=== PATIENT | male | born 1935 | race Caucasian/White ===

== ENCOUNTER 2017-04-04 20:59 | Emergency (ER) | payer MEDICARE, OTHER, BC ==
[2017-04-04] MEDS ORDERED: CLONIDINE HCL 0.1 MG TABLET PO ONE ×2 (21:11→23:09)
[2017-04-04 21:19] LABS: BASO % 0.5 % (0-6); EOS % 5.4 % (0-6); GRAN % 65.6 % (47-80); HEMATOCRIT 37.7 % (42.0-52.0); LYMPH % 18.7 % (16-45); MEAN CELL VOLUME 94.3 fl (81-97); MEAN CORPUSCULAR HEMOGLOBIN 32.5 pg (27-33); MEAN CORPUSCULAR HGB CONC 34.5 g/dl (32-36); MEAN PLATELET VOLUME 9.1 fl (7.4-10.4); MONO % 9.8 % (0-9); PLATELET COUNT 295 K/uL (130-400); RED CELL DISTRIBUTION WIDTH 13.5 % (11.5-14.5); WHITE BLOOD COUNT W/O DIFF 9.9 K/uL (4.2-12.2)
--- NOTE | 2017-04-04 21:22 | Emergency Department Record ---
History of Present Illness - General Chief Complaint: Dizziness Stated Complaint: DIZZINESS Source: Patient, Family - History of Present Illness Initial Comments: Patient and his report that he has been "fuzzy" in his head with dizziness all day today and less so yesterday. He has a slight headache. He denies any sensation of motion or spinning. He denies cp, ghulam, nausea, vomiting, slurred speech, unilateral weakness. He has had a history of htn, and a stroke over 10 years ago, no AK, DM, is a former smoker. MD Complaint: Dizziness - Related Data Home Medications Medication Instructions Recorded Confirmed Last Taken Aspirin [Aspir-Low] 81 mg PO DAILY 04/04/17 04/04/17 04/04/17 Calcium Carbonate [Calcium] 500 mg PO BID 04/04/17 04/04/17 04/04/17 Ezetimibe [Zetia] 10 mg PO DAILY 04/04/17 04/04/17 04/04/17 Nebivolol HCl [Bystolic] 5 mg PO DAILY 04/04/17 04/04/17 04/04/17 Omeprazole [Prilosec] 20 mg PO DAILY 04/04/17 04/04/17 04/04/17 Allergies Allergy/AdvReac Type Severity Reaction Status Date / Time Penicillins Allergy Intermediate ITCHING Verified 11/19/15 15:58 Sulfa (Sulfonamide Allergy Intermediate ITCHING Verified 11/19/15 15:58 Antibiotics) fluoxetine HCl [From Prozac] AdvReac Intermediate "made me Verified 11/19/15 15: 58 too sleepy" naproxen [From Naprosyn] AdvReac Unknown PT UNSURE Verified 11/19/15 15:58 OF REACTION ofloxacin [From Floxin] AdvReac Unknown PT UNSURE Verified 11/19/15 15:58 OF REACTION enalapril maleate AdvReac Unknown PT UNSURE Uncoded 11/19/15 15:58 OF REACTION Review of Systems Reviewed: No additional complaints except as noted below Constitutional: Reports: As per HPI. Denies: Chills, Fever, Malaise, Night sweats, Weakness, Weight change Eyes: Reports: As per HPI. Denies: Eye discharge, Eye pain, Photophobia, Vision change ENT: Reports: As per HPI. Denies: Congestion, Dental pain, Ear pain, Epistaxis , Hearing loss, Throat pain Respiratory: Reports: As per HPI. Denies: Cough, Dyspnea, Hemoptysis, Stridor, Wheezes Cardiovascular: Reports: As per HPI. Denies: Arrhythmia, Chest pain, Dyspnea on exertion, Edema, Murmurs, Orthopnea, Palpitations, Paroxysmal nocturnal dyspnea, Rheumatic Fever, Syncope Endocrine: Reports: As per HPI. Denies: Fatigue, Heat or cold intolerance, Polydipsia, Polyuria Gastrointestinal: Reports: As per HPI. Denies: Abdominal pain, Constipation, Diarrhea, Hematemesis, Hematochezia, Melena, Nausea, Vomiting Genitourinary: Reports: As per HPI. Denies: Dysuria, Frequency, Hematuria, Incontinence, Retention, Testicular pain, Testicular mass, Urgency Musculoskeletal: Reports: As per HPI. Denies: Arthralgia, Back pain, Gout, Joint swelling, Myalgia, Neck pain Skin: Reports: As per HPI. Denies: Bruising, Change in color, Change in hair/ nails, Lesions, Pruritus, Rash Neurological: Reports: As per HPI. Denies: Abnormal gait, Confusion, Headache, Numbness, Paresthesias, Seizure, Tingling, Tremors, Vertigo, Weakness Psychiatric: Reports: As per HPI. Denies: Anxiety, Auditory hallucinations, Depression, Homicidal thoughts, Suicidal thoughts, Visual hallucinations Hematological/Lymphatic: Reports: As per HPI. Denies: Anemia, Blood Clots, Easy bleeding, Easy bruising, Swollen glands Past Medical History - SOCIAL HISTORY Smoking Status: Former smoker - RESPIRATORY Hx Respiratory Disorders: Yes Hx Bronchitis: Yes ("many years ago") Hx Pneumonia: Yes (once in past) - CARDIOVASCULAR Hx Cardio Disorders: No - NEURO Hx Neuro Disorders: Yes Hx Dizziness: Yes (sometimes) Hx TIA: Yes (2006) - GI Hx GI Disorders: Yes Hx Reflux: Yes Hx of Polyps: Yes - Hx Genitourinary Disorders: Yes Hx Prostate Problems: Yes (cancer-) - ENDOCRINE Hx Endocrine Disorders: No - MUSCULOSKELETAL Hx Musculoskeletal Disorders: Yes Hx Arthritis: Yes (left knee replaced) Hx Osteoporosis: Yes - PSYCH Hx Psych Problems: Yes Hx Anxiety: Yes ("I worry sometimes") - HEMATOLOGY/ONCOLOGY Hx Hematology/Oncology Disorders: No Hx Cancer: Yes (prostate removed) Hx Chemotherapy: No Hx Radiation Therapy: No Family Medical History Hx Alcohol Use: Brother/Sister *Alcohol Comment: brothers x2-alcoholic Hx Cancer: Mother *Cancer Comment: breast ca Hx HTN: Father Physical Exam - General General Appearance: Alert, Oriented x3, Cooperative, No acute distress, Other ( hard of hearing, hearing aides in place) - Head Head exam: Normal inspection - Eye Eye exam: Normal appearance, PERRL Pupils: Normal accommodation - ENT ENT exam: Normal exam, Mucous membranes moist, Normal external ear exam, Normal orophraynx, TM's normal bilaterally Ear exam: Normal external inspection. negative: External canal tenderness Nasal Exam: Normal inspection. negative: Discharge, Sinus tenderness Mouth exam: Normal external inspection, Tongue normal Teeth exam: Normal inspection. negative: Dental caries Throat exam: Normal inspection. negative: Tonsillar erythema, Tonsillar exudate - Neck Neck exam: Normal inspection, Full ROM. negative: Tenderness - Respiratory Respiratory exam: Normal lung sounds bilaterally. negative: Respiratory distress - Cardiovascular Cardiovascular Exam: Regular rate, Normal rhythm, Normal heart sounds - GI/Abdominal GI/Abdominal exam: Soft, Normal bowel sounds. negative: Tenderness - Rectal Rectal exam: Deferred - exam: Deferred - Extremities Extremities exam: Normal inspection, Full ROM, Normal capillary refill. negative: Calf tenderness, Pedal edema, Tenderness - Back Back exam: Reports: Normal inspection, Full ROM. Denies: Muscle spasm, Rash noted, Tenderness - Neurological Neurological exam: Alert, CN II-XII intact, Normal gait, Oriented X3, Reflexes normal. negative: Abnormal gait, Motor sensory deficit - Psychiatric Psychiatric exam: Normal affect, Normal mood - Skin Skin exam: Dry, Intact, Normal color, Warm, Other (trace clammy after coming in from outdoor heat in the 80's.) Course Vital Signs 04/04/17 21:00 Temperature 98.3 F Pulse Rate [ 77 Pulse Ox Probe] Respiratory 16 Rate Blood Pressure 182/99 [Left Arm] Pulse Ox 98 - Reevaluation(s) Reevaluation #1: When first returned from Ct scan he felt more dizzy. Now he is feeling better. No further clamminess since coming into the air conditioning here. His headache is nearly gone and his dizziness has improved but not resolved. BP 160's / 90' s. All results reviewed, all questions answered. 04/04/17 22:59 04/04/17 23:08 04/04/17 23:15 Medical Decision Making - Management Options MDM Management: No Additional Work-up Planned - Data Complexity MDM Data: Labs Ordered and/or Reviewed, X-Ray Ordered and/or Reviewed ( Noncontrast Head CT: SVID, no acute changes. CXR two view Hyperinflation, no acute abnormality, granuloma noted. Per Radiologist.), EKG Ordered and/or Reviewed - Lab Data Result diagrams: 04/04/17 21:10 04/04/17 21:10 - EKG Data -: EKG Interpreted by Me EKG: No Acute Changes, Unchanged From Previous (unchanged from prior of 05-04-15) Disposition Disposition: Discharge Clinical Impression: Hypertensive urgency Disposition: Home, Self-Care Condition: (1) Good Instructions: Chronic Hypertension (ED), Hypertension in the Older Adult (ED) Additional Instructions: Home, rest. Monitor BP as you have been doing for Dr. Lopez. Continue present medications. Follow up with Dr. Lopez for BP check and management of anemia. Tylenol if needed as directed for headache. Forms: Patient Portal Access
[2017-04-04 21:31] LABS: ANION GAP 7.3 (7-16); BLOOD UREA NITROGEN 12 mg/dL (9-20); CARBON DIOXIDE 27.7 mmol/L (22-30); CREATININE 0.7 mg/dL (0.66-1.25); EST GLOMERULAR FILTRATION RATE > 60 ml/min; GLUCOSE,RANDOM 100 mg/dL (70-110)
[2017-04-04 21:32] LABS: INR 0.89; PARTIAL THROMBOPLASTIN TIME 27.1 SECONDS (24.5-39.1); PROTHROMBIN TIME (PATIENT) 10.1 SECONDS (9.5-12.1)
[2017-04-04 21:43] LABS: CKMB 6.2 ug/L (0-6); TROPONIN I < 0.012 ng/mL (0.00-0.034)
[2017-04-04 21:51] LABS: CREATINE PHOSPHOKINASE 216 U/L (55-170)
[2017-04-04 22:06] LABS: URINE APPEARANCE CLEAR; URINE BILIRUBIN NEGATIVE (NEGATIVE); URINE BLOOD NEGATIVE (NEGATIVE); URINE COLOR YELLOW; URINE GLUCOSE (UA) NEGATIVE (NEGATIVE); URINE KETONE NEGATIVE (NEGATIVE); URINE LEUKOCYTE ESTERASE NEGATIVE (NEGATIVE); URINE NITRITE NEGATIVE (NEGATIVE); URINE PROTEIN NEGATIVE (NEGATIVE); URINE UROBILINOGEN 0.2 E.U./dL (0.20 - 1.00)
[2017-04-04] MEDS ORDERED: ACETAMINOPHEN 325 MG TAB PO ONE (22:44)
--- NOTE | 2017-04-06 14:42 | RADIOLOGY REPORT ---
EXAM: CHEST 2 VIEWS HISTORY: DIZZINESS. TECHNIQUE: Chest x-ray, two views. COMPARISON: 05/16/10. FINDINGS: The heart is not enlarged and there is no mediastinal mass. There is no acute infiltrate or vascular congestion. The lungs are hyperinflated. There is a calcified nodule in the lower left lung, unchanged, likely an old granuloma. IMPRESSION: 1. NO ACUTE CARDIAC OR PULMONARY ABNORMALITY. 2. LUNGS HYPERINFLATED. 3. CALCIFIED GRANULOMA LOWER LEFT LUNG. JOB NUMBER: [id number] [facility]
--- NOTE | 2017-04-06 14:50 | CT SCAN REPORT ---
EXAM: CT SCAN HEAD WO CONTRAST HISTORY: DIZZINESS. TECHNIQUE: Noncontrast head CT. COMPARISON: None. FINDINGS: The ventricles and subarachnoid spaces are unremarkable. No mass or mass effect. No intra or extraaxial hemorrhage. Areas of low density are seen in the periventricular and deep cerebral white matter regions, likely the result of chronic small vessel ischemic change. No CT evidence for large acute territorial infarct. No fracture or acute osseous abnormality. The visualized sinuses are clear. IMPRESSION: 1. CHRONIC SMALL VESSEL ISCHEMIC CHANGE. 2. NO MASS, HEMORRHAGE, OR ACUTE INTRACRANIAL PROCESS. JOB NUMBER: [id number] [facility]
== END 2017-04-04 23:35 | disposition home or self-care (01) ==
LOC: ER 20:59
DX: I16.0 Hypertensive urgency (principal); I10 Essential (primary) hypertension; R51 Headache; R42 Dizziness and giddiness; Z86.73 Personal history of transient ischemic attack (TIA), and cerebral infarction without residual deficits; Z87.891 Personal history of nicotine dependence
CPT/HCPCS: 70450; 71020; 80048; 81003; 82550; 82553; 84484; 85025; 85610; 85730; 93005; 93010; 99284

== ENCOUNTER 2018-12-26 18:11 | Emergency (ER) | payer MEDICARE, OTHER, BC ==
[2018-12-26] MEDS ORDERED: CEFAZOLIN 1 Gram 1 GM/50 ML BAG IVPB ONE (18:26)
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
[2018-12-26 18:44] LABS: BASO % 0.3 % (0-6); EOS % 1.3 % (0-6); GRAN % 79.8 % (47-80); HEMATOCRIT 38.5 % (42.0-52.0); HEMOGLOBIN 12.9 gm/dl (14.0-18.0); MEAN CELL VOLUME 95.5 fl (81-97); MEAN CORPUSCULAR HGB CONC 33.5 g/dl (32-36); MONO % 8.6 % (0-9); PLATELET COUNT 309 K/uL (130-400); RED BLOOD COUNT 4.03 M/uL (4.40-5.70); RED CELL DISTRIBUTION WIDTH 14.4 % (11.5-14.5)
[2018-12-26] MEDS ORDERED: Diph,Pert(Acell),Tet Vac 0.5 ML SYR IM ONE (18:44)
[2018-12-26] MEDS ORDERED: THROMBIN/GELATIN FOAM HEMOSTAT (THROMBI-GEL) TP ONE (19:53)
== END 2018-12-26 19:57 | disposition home or self-care (01) ==
LOC: ER 18:11
DX: S61.012A Laceration without foreign body of left thumb without damage to nail, initial encounter (principal); S61.211A Laceration without foreign body of left index finger without damage to nail, initial encounter; W32.0XXA Accidental handgun discharge, initial encounter; Y92.009 Unspecified place in unspecified non-institutional (private) residence as the place of occurrence of the external cause; Z87.891 Personal history of nicotine dependence; Z79.01 Long term (current) use of anticoagulants
CPT/HCPCS: 12041; 85025; 90715; 96365; 96372; 99284

== ENCOUNTER 2019-01-02 13:09 | Emergency (ER) | payer MEDICARE, OTHER, BC ==
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
== END 2019-01-02 14:18 | disposition home or self-care (01) ==
LOC: ER 13:09
DX: Z48.02 Encounter for removal of sutures (principal)

== ENCOUNTER 2019-08-11 11:11 | Observation (INO) | payer MEDICARE, OTHER, BC ==
[2019-08-11] MEDS ORDERED: ACETAMINOPHEN 1,000 MG/100 ML BTL IVPB ONE (11:21)
[2019-08-11 11:25] LABS: ABSOLUTE NEUTROPHIL COUNT 7.01; HEMATOCRIT 39.1 % (42.0-52.0); MEAN CELL VOLUME 96.1 fl (81-97); MEAN CORPUSCULAR HEMOGLOBIN 31.9 pg (27-33); MEAN CORPUSCULAR HGB CONC 33.2 g/dl (32-36); MEAN PLATELET VOLUME 8.8 fl (7.4-10.4); PLATELET COUNT 297 K/uL (130-400); RED BLOOD COUNT 4.07 M/uL (4.40-5.70); RED CELL DISTRIBUTION WIDTH 13.9 % (11.5-14.5); WHITE BLOOD COUNT W/O DIFF 8.9 K/uL (4.2-12.2)
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
[2019-08-11 11:36] LABS: BLOOD UREA NITROGEN 12 mg/dL (8-23); CREATININE 0.5 mg/dL (0.7-1.2); EST GLOMERULAR FILTRATION RATE > 60 mL/min
[2019-08-11 11:37] LABS: TOTAL PROTEIN 7.3 g/dL (6.6-8.7)
[2019-08-11 11:38] LABS: PARTIAL THROMBOPLASTIN TIME 27.8 SECONDS (24.5-39.1); PROTHROMBIN TIME (PATIENT) 10.5 SECONDS (9.5-12.1)
[2019-08-11 11:39] LABS: GLUCOSE,RANDOM 112 mg/dL (74-109)
[2019-08-11 11:41] LABS: ALT/SGPT 38 U/L (<41); AST/SGOT 48 U/L (10.0-50.0)
[2019-08-11 11:42] LABS: ALB/GLOB RATIO 1.6 (1.1-1.8); ALBUMIN 4.5 g/dL (4.0-5.0); ALKALINE PHOSPHATASE 58 U/L (40-129)
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
[2019-08-11] MEDS ORDERED: TOPICAL LIDOCAINE W/ EPI 5 ML TOP ONE (13:11)
[2019-08-11] MEDS ORDERED: ONDANSETRON HCL IV 4 MG/2 ML VIAL IVP ONE (13:15)
[2019-08-11] MEDS ORDERED: MORPHINE SULFATE 5 MG/ML VIAL IVP ONE (13:15)
[2019-08-11] MEDS ORDERED: ONDANSETRON HCL IV 4 MG/2 ML VIAL IVP PRN (14:17)
[2019-08-11] MEDS ORDERED: ACETAMINOPHEN 500 MG TABLET PO PRN (14:17)
[2019-08-11] MEDS ORDERED: ACETAMINOPHEN 1,000 MG/100 ML BTL IVPB SCH (14:17)
[2019-08-11] MEDS ORDERED: MORPHINE SULFATE 5 MG/ML VIAL IVP PRN (14:17)
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
[2019-08-11] MEDS: 0.9 % SODIUM CHLORIDE 1000ML 1,000 ML IV PRN (16:31)
[2019-08-11] MEDS ORDERED: HYDROCODONE/APAP 5/325MG TABLET PO PRN (20:27)
[2019-08-11] MEDS: HYDROCODONE/APAP 5/325MG TABLET PO PRN (21:03)
[2019-08-12] MEDS: HYDROCODONE/APAP 5/325MG TABLET PO PRN (06:00)
[2019-08-12] MEDS: 0.9 % SODIUM CHLORIDE 1000ML 1,000 ML IV PRN (06:03)
[2019-08-12 06:53] LABS: ABSOLUTE NEUTROPHIL COUNT 8.09; HEMATOCRIT 37.1 % (42.0-52.0); MEAN CELL VOLUME 97.1 fl (81-97); MEAN CORPUSCULAR HEMOGLOBIN 31.4 pg (27-33); MEAN CORPUSCULAR HGB CONC 32.3 g/dl (32-36); MEAN PLATELET VOLUME 9.1 fl (7.4-10.4); PLATELET COUNT 259 K/uL (130-400); RED BLOOD COUNT 3.82 M/uL (4.40-5.70); WHITE BLOOD COUNT W/O DIFF 10.1 K/uL (4.2-12.2)
[2019-08-12] MEDS ORDERED: PANTOPRAZOLE SODIUM 40 MG TABLET PO SCH (07:00)
[2019-08-12 07:17] LABS: AMYLASE 35 U/L (28-100); LIPASE 27 U/L (13-60)
[2019-08-12 07:19] LABS: ALB/GLOB RATIO 1.6 (1.1-1.8); ALBUMIN 3.8 g/dL (4.0-5.0); ALKALINE PHOSPHATASE 48 U/L (40-129); ALT/SGPT 26 U/L (<41); AST/SGOT 27 U/L (10.0-50.0); BLOOD UREA NITROGEN 11 mg/dL (8-23); CREATININE 0.6 mg/dL (0.7-1.2); EST GLOMERULAR FILTRATION RATE > 60 mL/min; GLUCOSE,RANDOM 101 mg/dL (74-109); TOTAL PROTEIN 6.2 g/dL (6.6-8.7)
[2019-08-12] MEDS ORDERED: AMIODARONE HCL 200 MG TABLET PO SCH (10:00)
[2019-08-12] MEDS ORDERED: EZETIMIBE 10 MG TABLET PO SCH (10:00)
[2019-08-12] MEDS ORDERED: NIFEDIPINE 30 MG TAB.ER.24 PO SCH (10:00)
--- NOTE | 2019-08-12 10:37 | CT SCAN REPORT ---
EXAMINATION: CT Head without IV Contrast EXAM DATE: 08/12/2019 10:21 AM TECHNIQUE: Standard protocol CT images of the head were obtained without intravenous contrast. Perez l and sagittal reconstructed images were created. INDICATION: Head injury, on chronic anticoagulation COMPARISON: CT head 08/11/2019 and 04/04/2017 HAND DOMINANCE: Unknown. ENCOUNTER: Not applicable FINDINGS: 1. No intracranial mass effect, shift of midline structures, intra-axial or extra-axial hemorrhage, o r other extra-axial fluid collections. 2. Brain volume and ventricular size are appropriate for patient's stated age. No ventricular outflow obstruction. 3. Sheriff-white matter differentiation is preserved. No sulcal effacement. No suspicious areas of alter ed attenuation. Redemonstrated age-indeterminate hypodensity in the basal ganglia, similar to study 1 10/11/2018 but new since more remote studies. Moderate burden of supratentorial white matter hypodensit y. 4. Midline structures and craniocervical junction are unremarkable. 5. Intracranial calcified atherosclerotic disease in the carotid siphons and intradural segments of t he vertebral arteries. 6. No depressed or widely calvarial fractures. No aggressive calvarial lesions. 7. Visualized paranasal sinuses and temporal bone structures are well aerated. Bilateral lens replace ment. IMPRESSION: No significant interval changes since study obtained one day prior. Age-indeterminate left basal ganglia ischemic changes. Senescent and moderate chronic microangiopathic changes without acute intracranial abnormality to the limits of noncontrast CT technique. Dictated by: Brandi Gilliland MD on 08/12/2019 10:29 AM. .
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
[2019-08-12] MEDS ORDERED: ATORVASTATIN 20 MG TABLET PO SCH (22:00)
[2019-08-18] MEDS ORDERED: ALENDRONATE SODIUM PO SCH (10:00)
== END 2019-08-12 12:45 | disposition home or self-care (01) ==
LOC: ER 11:11 → UNDOADMOB 14:14 → MEDSURG 14:14
PROVIDERS: ADMIT Internal Medicine; ATTEND Internal Medicine
DX: S22.32XA Fracture of one rib, left side, initial encounter for closed fracture (principal); S01.01XA Laceration without foreign body of scalp, initial encounter; V49.59XA Passenger injured in collision with other motor vehicles in traffic accident, initial encounter; I48.91 Unspecified atrial fibrillation; Z79.01 Long term (current) use of anticoagulants; K21.9 Gastro-esophageal reflux disease without esophagitis; M81.0 Age-related osteoporosis without current pathological fracture; Z90.79 Acquired absence of other genital organ(s); Z87.891 Personal history of nicotine dependence; Z86.73 Personal history of transient ischemic attack (TIA), and cerebral infarction without residual deficits; Z85.46 Personal history of malignant neoplasm of prostate
CPT/HCPCS: 12001; 70450; 71260; 72125; 74177; 80053; 82150; 83690; 85027; 85610; 85730; 94010; 96365; 96374; 96375; 99217; 99220; 99285; J2405

== ENCOUNTER 2019-08-13 05:55 | Emergency (ER) | payer MEDICARE, OTHER, BC ==
[2019-08-13] MEDS ORDERED: ASPIRIN 81 MG CHEWABLE TABLET PO ONE (06:16)
[2019-08-13] MEDS ORDERED: FENTANYL PF 100MCG/2ML VIAL IVP ONE (06:17)
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
[2019-08-13 06:35] LABS: HEMATOCRIT 34.3 % (42.0-52.0); HEMOGLOBIN 11.1 gm/dl (14.0-18.0); MEAN CELL VOLUME 97.4 fl (81-97); MEAN CORPUSCULAR HEMOGLOBIN 31.5 pg (27-33); MEAN CORPUSCULAR HGB CONC 32.4 g/dl (32-36); MEAN PLATELET VOLUME 8.9 fl (7.4-10.4); PLATELET COUNT 237 K/uL (130-400); RED BLOOD COUNT 3.52 M/uL (4.40-5.70); RED CELL DISTRIBUTION WIDTH 14.2 % (11.5-14.5); WHITE BLOOD COUNT W/O DIFF 10.8 K/uL (4.2-12.2)
[2019-08-13 06:46] LABS: BLOOD UREA NITROGEN 14 mg/dL (8-23); CREATININE 0.6 mg/dL (0.7-1.2); EST GLOMERULAR FILTRATION RATE > 60 mL/min
[2019-08-13 06:47] LABS: TOTAL PROTEIN 6.2 g/dL (6.6-8.7)
[2019-08-13 06:49] LABS: GLUCOSE,RANDOM 126 mg/dL (74-109)
[2019-08-13 06:51] LABS: ALB/GLOB RATIO 1.5 (1.1-1.8); ALBUMIN 3.7 g/dL (4.0-5.0); ALT/SGPT 27 U/L (<41); AST/SGOT 31 U/L (10.0-50.0)
[2019-08-13 06:52] LABS: ALKALINE PHOSPHATASE 53 U/L (40-129)
--- NOTE | 2019-08-13 07:11 | RADIOLOGY REPORT ---
EXAMINATION: Two View Chest Radiographs EXAM DATE: 08/13/2019 6:57 AM TECHNIQUE: Frontal and lateral views INDICATION: right sided chest pain COMPARISON: April 04, 2017 ENCOUNTER: Not applicable FINDINGS: Limited by low lung volumes. Suspect bibasilar atelectatic changes. No focal consolidative features. Upper normal heart size. Pulmonary vasculature within normal limits. Diffuse osteopenia. Degenerative changes of the left glenohumeral joint. Superior subluxation of the right head of the humerus likely relating to right chronic rotator cuff tear. Suspect minimal pleural effusions. IMPRESSION: Limited by low lung volumes however evidence of mild bibasilar atelectatic changes and minimal pleura l effusions. Dictated by: Suleman Diaz DO on 08/13/2019 7:06 AM. .
== END 2019-08-13 07:40 | disposition short-term general hospital (02) ==
LOC: ER 05:55
DX: R07.89 Other chest pain (principal); S22.32XD Fracture of one rib, left side, subsequent encounter for fracture with routine healing; I48.91 Unspecified atrial fibrillation; Z87.891 Personal history of nicotine dependence; Z79.01 Long term (current) use of anticoagulants
CPT/HCPCS: 99285 ×2; 96374; 80053; 84484; 85027; 71046; 93005; 93010; J3010

== ENCOUNTER 2019-08-19 13:57 | Inpatient (IN) | payer MEDICARE, OTHER, BC ==
[2019-08-19] MEDS ORDERED: FLU VAC QS 2019-20 (INPT, 6MO+) 60MCG/0.5ML IM ONE (16:02)
[2019-08-19] MEDS ORDERED: PNEUM 23-VAL ADULT IM ONE (16:05)
[2019-08-19] MEDS: GABAPENTIN 300 MG CAPSULE PO SCH (16:42)
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
--- NOTE | 2019-08-19 17:20 | Rehab Evaluation ---
Patient Information - Patient Information Diagnosis: Deconditioning due to R rib fracture Ordered Treatment: PT Evaluate and Treat Status: Initial Evaluation Surgery: No History: Detail (Patient was admitted to a swing bed on 08/19/19.) Past Medical/Surgical Hx: PAST MEDICAL/SURGICAL HISTORY Past Surgical History T&A; right knee scope x2; left knee scope; EGD; hemorrhoidectomy; hernia left inguinal; rt rotator cuff repair; prostatectomy; colonoscopy; left knee replacement 05-14-15. bilat cataract sx; PMH - Respiratory Hx Respiratory Disorders Yes Hx Bronchitis Yes Hx Pneumonia Yes PMH - Cardiovascular Hx Cardiovascular Disorders No Hx Irregular Heartbeat Yes: afib Hx Transient Ischemic Attacks Yes: 2005 (TIA) Residual Deficits from CVA No PMH - Neuro Hx Neurological Disorders Yes Hx Cerebrovascular Accident Yes Hx Dizziness Yes: sometimes Hx Transient Ischemic Attacks Yes: 2005 (TIA) PMH - GI Hx Gastrointestinal Disorders Yes Hx Gastroesophageal Reflux Yes PMH - Hx Genitourinary Disorders Yes Hx Prostate Problems Yes: cancer- PMH - Endocrine Hx Endocrine Disorders No PMH - Musculoskeletal Hx Musculoskeletal Disorders Yes Hx Arthritis Yes: left knee replaced Hx Osteoporosis Yes PMH - Psych Hx Psychiatric Problems Yes Hx Anxiety Yes: "I worry sometimes" PMH - Hematology/Oncology Hx Hematology/Oncology Yes Disorders Hx Cancer Yes: prostate removed Hx Chemotherapy No Hx Radiation Therapy No Premorbid Status: Detail (Patient reports that prior to the hospitalization he ambulated with a 4-pt cane with no difficulties. He and his split the cooking responsibilties and they have someone who comes to clean their house. He says that he has help with the yardwork.) Social History: Detail (Patient lives in a 1-story home with his . He states that there are no steps to enter. In the bathroom there is a tub/shower combination with grab bars but no hand held shower head. He also has a shower seat and says that he sits to shower. The toilet is standard height and there are grab bars by it. He has a 4-pt cane available to him.) Precautions: [place], Fall - Time With Patient Total Time Spent With Patient (Min): 30 Treatment Procedures: Detail (Initial evaluation; low complexity The patient was left in bed with his call light and bedside table within reach. His and the nursing staff were in the room with him.) Subjective Information - Subjective Information Per Patient (Patient reports that he did not have any pain with lying down but has pain when moving. After the evaluation he stated that he had pain in his R shoulder.) Objective Data - Pain Pain Present: No (Patient reported that he had no pain when lying down.) - Mental Status Patient Orientation: Place (Patient was able to correctly identify the name of the hospital.), Time (Patient was unsure of the current month and year. He was able to correctly identify the current president.) - Visual Perception Appears within normal limits for therapeutic activities - ROM Within normal limits (LE AROM was within normal limits for functional activites. During ambulation he was noted to have decreased dorsiflexion bilaterally but was able to clear the floor with both feet.) - Strength/Tone Within normal limits (Bilateral hip flexion 4/5, bilateral hip abduction and adduction, and knee extension 5/5, R knee flexion 5/5, L knee flexion 4/5, R ankle dorsiflexion 4/5, L ankle dorsiflexion 5/5) - Coordination Appears within normal limits for therapeutic activities - Bed Mobility Needs Assist (Patient required min assist of 1 to move to the edge of the bed from supine. He needed mod assist of 2 to move himself up in bed.) - Transfers Needs Assist (Patient required min assist of 1 to move from supine to sit. He was able to independently move from sit to stand, stand to sit, and sit to supine.) - Balance Balance Sitting: Good (Patient demonstrated good sitting balance with strength testing.) Balance Standing: Fair (Patient demonstrated postural sway in all directions up to 4 inches with narrow BHAVANI. With eyes closed he demonstrated postural sway of up to 2 inches in all directions. He demonstrated good postural correction when given perturbations.) - Sensation Intact - Gait Detail (Patient ambulated 140 feet with a front wheeled walker over smooth surfaces with contact guard of 1. He ambulates with a reciprocal step through gait pattern. During ambulation he demonstrates decreased ankle dorsiflexion bilaterally and decreased knee flexion during swing phase bilaterally. During ambulation he seemed to navigate towards the left and right instead of a straight path, and was unsteady during turning.) - ADL's/IADL's Detail Therapy Assessment - Therapy Assessment Detail (Patient presents with decreased dynamic balance, assistance for transfers, and gait abnormalities that make him a good candidate for inpatient physical therapy. He will work towards becoming independent in gait and transfers to be able to return home independently and to his prior functional status.) Problem List - Problem List Physical Therapy Problem List: Detail (1. Gait abnormalities 2. Decreased LE strength 3. Assistance for transfers 4. Decreased standing balance) Goals - Goals Physical Therapy Goals: 1. Patient will be independent and demonstrate good technique of exercises in his HEP to maintain and improve limited LE strength motions. 2. Patient will be able to ambulate 150 feet independently with his 4- pt cane to get around his home independently. 3. Patient will be able to complete all transfers independently to return home without assistance. 4. Patient's balance will be assessed using an objective balance assessment. Plan - Plan Physical Therapy Plan: Patient will be seen 1-2x a day, M-F, for gait training, therapeutic exercises and activities, HEP instruction, and balance training.
[2019-08-19] MEDS: APIXABAN 5MG TABLET PO SCH (21:42)
[2019-08-19] MEDS: ATORVASTATIN 20 MG TABLET PO SCH (21:42)
[2019-08-19] MEDS: CALCIUM CARBONATE 500 MG TAB.CHEW PO SCH (21:42)
[2019-08-19] MEDS: DOCUSATE SODIUM 100 MG CAPSULE PO SCH (21:43)
[2019-08-19] MEDS: REMOVE PATCH 1 EACH MISC TD SCH (21:45)
[2019-08-19] MEDS ORDERED: REMOVE PATCH 1 EACH MISC TD SCH (22:00)
[2019-08-20] MEDS: MULTIVITAMINS/MINERALS TABLET PO SCH (09:40)
[2019-08-20] MEDS: LIDOCAINE 5% PATCH TOP SCH (09:41)
[2019-08-20] MEDS: APIXABAN 5MG TABLET PO SCH ×2 (09:41→21:22)
[2019-08-20] MEDS: DOCUSATE SODIUM 100 MG CAPSULE PO SCH ×2 (09:41→21:23)
[2019-08-20] MEDS: AMIODARONE HCL 200 MG TABLET PO SCH (09:42)
[2019-08-20] MEDS: EZETIMIBE 10 MG TABLET PO SCH (09:43)
[2019-08-20] MEDS: NIFEDIPINE 30 MG TAB.ER.24 PO SCH (09:43)
[2019-08-20] MEDS: PANTOPRAZOLE SODIUM 40 MG TABLET PO SCH (09:43)
[2019-08-20] MEDS ORDERED: LIDOCAINE 5% PATCH TOP SCH (10:00)
[2019-08-20 11:55] LABS: ABSOLUTE NEUTROPHIL COUNT 8.96; BASO % 0.3 % (0-6); EOS % 2.6 % (0-6); GRAN % 78.3 % (47-80); HEMATOCRIT 34.9 % (42.0-52.0); LYMPH % 7.6 % (16-45); MEAN CELL VOLUME 97.8 fl (81-97); MEAN CORPUSCULAR HEMOGLOBIN 30.8 pg (27-33); MEAN CORPUSCULAR HGB CONC 31.5 g/dl (32-36); MEAN PLATELET VOLUME 8.2 fl (7.4-10.4); MONO % 11.2 % (0-9); PLATELET COUNT 393 K/uL (130-400); RED BLOOD COUNT 3.57 M/uL (4.40-5.70); RED CELL DISTRIBUTION WIDTH 14.2 % (11.5-14.5); WHITE BLOOD COUNT W/O DIFF 11.4 K/uL (4.2-12.2)
[2019-08-20 12:53] LABS: BLOOD UREA NITROGEN 15 mg/dL (8-23); CREATININE 0.6 mg/dL (0.7-1.2); EST GLOMERULAR FILTRATION RATE > 60 mL/min; GLUCOSE,RANDOM 86 mg/dL (74-109)
[2019-08-20] MEDS: GABAPENTIN 300 MG CAPSULE PO SCH (16:26)
[2019-08-20] MEDS: CALCIUM CARBONATE 500 MG TAB.CHEW PO SCH (21:22)
[2019-08-20] MEDS: ATORVASTATIN 20 MG TABLET PO SCH (21:22)
[2019-08-20] MEDS: REMOVE PATCH 1 EACH MISC TD SCH (21:30)
[2019-08-21] MEDS: ACETAMINOPHEN 325 MG TAB PO PRN ×2 (04:26→09:12)
[2019-08-21] MEDS: DOCUSATE SODIUM 100 MG CAPSULE PO SCH ×2 (09:09→21:28)
[2019-08-21] MEDS: MULTIVITAMINS/MINERALS TABLET PO SCH (09:09)
[2019-08-21] MEDS: AMIODARONE HCL 200 MG TABLET PO SCH (09:10)
[2019-08-21] MEDS: LIDOCAINE 5% PATCH TOP SCH (09:10)
[2019-08-21] MEDS: APIXABAN 5MG TABLET PO SCH ×2 (09:10→21:28)
[2019-08-21] MEDS: PANTOPRAZOLE SODIUM 40 MG TABLET PO SCH (09:11)
[2019-08-21] MEDS: NIFEDIPINE 30 MG TAB.ER.24 PO SCH (09:11)
[2019-08-21] MEDS: EZETIMIBE 10 MG TABLET PO SCH (09:12)
[2019-08-21] MEDS: BENZONATATE 100 MG CAPSULE PO PRN ×2 (09:44→18:32)
[2019-08-21] MEDS: GABAPENTIN 300 MG CAPSULE PO SCH (16:35)
[2019-08-21] MEDS: ATORVASTATIN 20 MG TABLET PO SCH (21:26)
[2019-08-21] MEDS: CALCIUM CARBONATE 500 MG TAB.CHEW PO SCH (21:26)
[2019-08-21] MEDS: REMOVE PATCH 1 EACH MISC TD SCH (21:28)
[2019-08-22 08:04] LABS: URINE APPEARANCE CLEAR; URINE BILIRUBIN NEGATIVE (NEGATIVE); URINE BLOOD NEGATIVE (NEGATIVE); URINE COLOR YELLOW; URINE GLUCOSE (UA) NEGATIVE (NEGATIVE); URINE KETONE NEGATIVE (NEGATIVE); URINE LEUKOCYTE ESTERASE NEGATIVE (NEGATIVE); URINE NITRITE NEGATIVE (NEGATIVE); URINE PROTEIN NEGATIVE (NEGATIVE)
--- NOTE | 2019-08-22 09:29 | Rehab Evaluation ---
Patient Information - Patient Information Diagnosis: Deconditioning due to R rib fracture Ordered Treatment: OT Evaluate and Treat Status: Initial Evaluation Surgery: No History: Detail (Patient was admitted to a swing bed on 08/19/19.) Past Medical/Surgical Hx: PAST MEDICAL/SURGICAL HISTORY Past Surgical History T&A; right knee scope x2; left knee scope; EGD; hemorrhoidectomy; hernia left inguinal; rt rotator cuff repair; prostatectomy; colonoscopy; left knee replacement 05-14-15. bilat cataract sx; PMH - Respiratory Hx Respiratory Disorders Yes Hx Bronchitis Yes Hx Pneumonia Yes PMH - Cardiovascular Hx Cardiovascular Disorders No Hx Irregular Heartbeat Yes: afib Hx Transient Ischemic Attacks Yes: 2005 (TIA) Residual Deficits from CVA No PMH - Neuro Hx Neurological Disorders Yes Hx Cerebrovascular Accident Yes Hx Dizziness Yes: sometimes Hx Transient Ischemic Attacks Yes: 2005 (TIA) PMH - GI Hx Gastrointestinal Disorders Yes Hx Gastroesophageal Reflux Yes PMH - Hx Genitourinary Disorders Yes Hx Prostate Problems Yes: cancer- PMH - Endocrine Hx Endocrine Disorders No PMH - Musculoskeletal Hx Musculoskeletal Disorders Yes Hx Arthritis Yes: left knee replaced Hx Osteoporosis Yes PMH - Psych Hx Psychiatric Problems Yes Hx Anxiety Yes: "I worry sometimes" PMH - Hematology/Oncology Hx Hematology/Oncology Yes Disorders Hx Cancer Yes: prostate removed Hx Chemotherapy No Hx Radiation Therapy No Premorbid Status: Detail (Patient reports that prior to the hospitalization he ambulated with a 4-pt cane with no difficulties. Pt reports that he was Ind with bathing and dressing although he later reported that his helped him with his shower. He reported that he and his shared home mgmt, meal prep, laundry and yard work although he reported to PT that they have someone who comes to clean their house and that they have help with the yardwork.) Social History: Detail (Patient lives in a 1-story home with his . He states that there is one step to enter. In the bathroom there is a tub/shower combination with a shower seat but no grab bars or hand held shower. The toilet is standard height and there are grab bars by it. He has a 4-pt cane available to him.) Precautions: [place], [place], Other ([place]) - Time With Patient Total Time Spent With Patient (Min): 30 Treatment Procedures: Detail (OT eval low complexity) Subjective Information - Subjective Information Per Patient Objective Data - Pain Pain Present: Yes (4-6/10 in upper mid back) - Mental Status Patient Orientation: Person (Pt oriented to self, location, birthday and year. He states age as "54", month as "September". Pt required multiple verbal cues to complete evaluation, this could be due to decreased hearing or mild confusion.), Place - Visual Perception Appears within normal limits for therapeutic activities (Pt wears glasses at all times.) - ROM Not within normal limits (Right shoulder flexion 80 degrees, left shoulder flexion 20 degrees, humberto elbow, wrist and hand AROM WNL.) - Strength/Tone Not within normal limits (Humberto shoulder flexion 3+/5 within AROM limitations, humberto elbow flexion, extension and music orchestrator 4/5) - Coordination Appears within normal limits for therapeutic activities - Transfers Independent (Ind with sit to stand from recliner chair.) - Balance Balance Sitting: Good Balance Standing: Fair (Pt demonstrates slight decreased balance with static standing balance at sink. No loss of balance observed.) - Sensation Intact - Gait Detail (Pt ambulating in room with 2 wheeled walker and SBA.) - ADL's/IADL's Detail (Pt reports he does not have any additional clothing available today and he does not want to shower today. He was agreeable to amb to sink and he was able to complete oral hygiene with set up, comb hair and wash face Indly while standing at sink. Pt able to don flannel shirt with min assist to pull around back due to decreased UE AROM.) Therapy Assessment - Therapy Assessment Detail (Pt presents with decreased shoulder motion and strength, decreased Ind with self cares and decreased cognition.) Problem List - Problem List Physical Therapy Problem List: Detail (1. Gait abnormalities 2. Decreased LE strength 3. Assistance for transfers 4. Decreased standing balance) Occupational Therapy Problem List: Detail (1. Decreased cognition/orientation. 2. Decreased shoulder AROM and strength needed for Ind ADLs. 3. Decreased Ind with dressing and showering.) Goals - Goals Physical Therapy Goals: 1. Patient will be independent and demonstrate good technique of exercises in his HEP to maintain and improve limited LE strength motions. 2. Patient will be able to ambulate 150 feet independently with his 4- pt cane to get around his home independently. 3. Patient will be able to complete all transfers independently to return home without assistance. 4. Patient's balance will be assessed using an objective balance assessment. Occupational Therapy Goals: 1. Pt will be oriented x 3. 2. Pt will be Ind with total body dressing. 3. Pt will be Ind with showering in sitting. 4. Pt will demonstrate improved shoulder motion and strength to allow Ind with ADLs. Prognosis - Prognosis Good Plan - Plan Physical Therapy Plan: Patient will be seen 1-2x a day, M-F, for gait training, therapeutic exercises and activities, HEP instruction, and balance training. Occupational Therapy Plan: OT 2-4 times per week to address goals and problem list as above.
[2019-08-22] MEDS: LIDOCAINE 5% PATCH TOP SCH (10:10)
[2019-08-22] MEDS: APIXABAN 5MG TABLET PO SCH ×2 (10:10→21:23)
[2019-08-22] MEDS: MULTIVITAMINS/MINERALS TABLET PO SCH (10:10)
[2019-08-22] MEDS: AMIODARONE HCL 200 MG TABLET PO SCH (10:10)
[2019-08-22] MEDS: DOCUSATE SODIUM 100 MG CAPSULE PO SCH ×2 (10:10→21:23)
[2019-08-22] MEDS: NIFEDIPINE 30 MG TAB.ER.24 PO SCH (10:11)
[2019-08-22] MEDS: PANTOPRAZOLE SODIUM 40 MG TABLET PO SCH (10:11)
[2019-08-22] MEDS: EZETIMIBE 10 MG TABLET PO SCH (10:11)
[2019-08-22] MEDS: BENZONATATE 100 MG CAPSULE PO PRN ×3 (10:17→23:22)
--- NOTE | 2019-08-22 11:32 | Physical Therapy Tx Note ---
Physical Therapy Tx Note - Treatment Note Tolerated: Good Total Time Spent With Patient: 15 Physical Therapy Tx Note: Detail (Patient's balance was assessed using the [place] Balance test. He scored a 37/56 putting him in the moderate fall risk category. Patient was independent in sit to stand but when moving into standing he uses his legs to push against the chair to help maintain balance. He ambulated 100 feet in the hallway using his 4-pt cane in his R hand. When using the 4-pt cane he doesn't put all 4 points on the ground and is unsteady. During ambulation he did not maintain a direct pathway and used stagger steps. Contact guard of 1 was needed during ambulation to correct patient when he became unsteady. He tended to lean towards the left and needed verbal cuing to keep all 4 points on the ground. He then ambulated 100 feet using a single point cane. With the single point cane he demonstrated better stability but was still a little unsteady during ambulation. He used the single point cane to propel himself forwards during ambulation. The patient was left the recliner with his call light and bedside table within reach. His chair alarm was set and his family was in the room with him.) Physical Therapy Problem List: Detail (1. Gait abnormalities 2. Decreased LE strength 3. Assistance for transfers 4. Decreased standing balance) Physical Therapy Goals: 1. Patient will be independent and demonstrate good technique of exercises in his HEP to maintain and improve limited LE strength motions. 2. Patient will be able to ambulate 150 feet independently with his 4- pt cane to get around his home independently. 3. Patient will be able to complete all transfers independently to return home without assistance. 4. Patient's balance will be assessed using an objective balance assessment. Physical Therapy Plan: Patient will be seen 1-2x a day, M-F, for gait training, therapeutic exercises and activities, HEP instruction, and balance training.
[2019-08-22] MEDS: GABAPENTIN 300 MG CAPSULE PO SCH (16:12)
[2019-08-22] MEDS: CALCIUM CARBONATE 500 MG TAB.CHEW PO SCH (21:21)
[2019-08-22] MEDS: ATORVASTATIN 20 MG TABLET PO SCH (21:22)
[2019-08-22] MEDS: REMOVE PATCH 1 EACH MISC TD SCH (21:24)
[2019-08-23] MEDS: LIDOCAINE 5% PATCH TOP SCH (10:06)
[2019-08-23] MEDS: EZETIMIBE 10 MG TABLET PO SCH (10:06)
[2019-08-23] MEDS: NIFEDIPINE 30 MG TAB.ER.24 PO SCH (10:06)
[2019-08-23] MEDS: MULTIVITAMINS/MINERALS TABLET PO SCH (10:06)
[2019-08-23] MEDS: AMIODARONE HCL 200 MG TABLET PO SCH (10:06)
[2019-08-23] MEDS: DOCUSATE SODIUM 100 MG CAPSULE PO SCH ×2 (10:06→21:12)
[2019-08-23] MEDS: PANTOPRAZOLE SODIUM 40 MG TABLET PO SCH (10:06)
[2019-08-23] MEDS: APIXABAN 5MG TABLET PO SCH ×2 (10:06→21:13)
[2019-08-23] MEDS: BENZONATATE 100 MG CAPSULE PO PRN ×2 (11:21→21:12)
--- NOTE | 2019-08-23 12:10 | Occupational Therapy Tx Note ---
Occupational Therapy Tx Note - Treatment Note Tolerated: Good Total Time Spent With Patient: 45 (ADL) Occupational Therapy Treatment Note: Detail (S: Pt up in chair agreeable to OT session. O: Sit to stand and amb to shower seat with 2 wheeled walker and SBA. Pt doffed flannel shirt, t-shirt, sweatpants, underwear and slipper socks with verbal cues for direction. Pt completed total body showering in sitting and standing with verbal cues for safety and assist to wash back. Pt dried self Indly. Pt donned t-shirt, underwear, jeans, socks, slip on shoes and flannel shirt Indly although he had moderate difficulty with flannel shirt due to shoulder stiffness. Pt combed hair Indly. Pt amb to toilet and completed toileting with assist for pants as he had suspenders on. Pt amb to EOB and performed sit to supine Indly. Pt left in bed with bed alarm on. A: Pt requires verbal cues/supervision for showering, Ind with dressing.) Occupational Therapy Problem List: Detail (1. Decreased cognition/orientation. 2. Decreased shoulder AROM and strength needed for Ind ADLs. 3. Decreased Ind with dressing and showering.) Occupational Therapy Goals: 1. Pt will be oriented x 3. 2. Pt will be Ind with total body dressing. 3. Pt will be Ind with showering in sitting. 4. Pt will demonstrate improved shoulder motion and strength to allow Ind with ADLs. Prognosis: Good Occupational Therapy Plan: OT 2-4 times per week to address goals and problem list as above.
--- NOTE | 2019-08-23 15:02 | Physical Therapy Tx Note ---
Physical Therapy Tx Note - Treatment Note Tolerated: Good Total Time Spent With Patient: 35 Physical Therapy Tx Note: Detail (Patient reported that his shoulders were sore today. He ambulated 200 feet with supervision using the front-wheeled walker. Patient needed verbal cuing to stay inside the walker. At the end of this walk, he sat in the WC due to being tired from walking. In the gym he did a warm-up on the Nustep for 5 minutes. He was able to use the arms on the bike for 2 minutes before needing to stop and just do the legs due to pain in his shoulders. He did the following exercises in standing: toe taps forward and laterally x10 bilaterally, narrow BHAVANI balance x30'', hip flexion and extension x10 bilaterally. He also did walking backwards and forward 2x5 feet. With the balance exercise he had some postural sway but maintained good stability without needing to hang on. He needed breaks after every couple of exercises due to feeling tired. He ambulated 75 feet with his 4-pt cane with supervision. In using the cane he needed verbal cuing to remind him to keep all 4 points on the ground. Patient did better today with using the cane for support instead of carrying it alongside him. The patient was left in his bedside chair with his call light and bedside table within reach, and his chair alarm set. His was in the room with him.) Physical Therapy Problem List: Detail (1. Gait abnormalities 2. Decreased LE strength 3. Assistance for transfers 4. Decreased standing balance) Physical Therapy Goals: 1. Patient will be independent and demonstrate good technique of exercises in his HEP to maintain and improve limited LE strength motions. 2. Patient will be able to ambulate 150 feet independently with his 4- pt cane to get around his home independently. 3. Patient will be able to complete all transfers independently to return home without assistance. 4. Patient's balance will be assessed using an objective balance assessment. Physical Therapy Plan: Patient will be seen 1-2x a day, M-F, for gait training, therapeutic exercises and activities, HEP instruction, and balance training.
[2019-08-23] MEDS: GABAPENTIN 300 MG CAPSULE PO SCH (15:48)
[2019-08-23] MEDS: CALCIUM CARBONATE 500 MG TAB.CHEW PO SCH (21:11)
[2019-08-23] MEDS: ATORVASTATIN 20 MG TABLET PO SCH (21:13)
[2019-08-23] MEDS: REMOVE PATCH 1 EACH MISC TD SCH (21:19)
[2019-08-24] MEDS: ACETAMINOPHEN 325 MG TAB PO PRN ×2 (00:48→20:15)
[2019-08-24] MEDS: LIDOCAINE 5% PATCH TOP SCH (10:09)
[2019-08-24] MEDS: BENZONATATE 100 MG CAPSULE PO PRN (10:10)
[2019-08-24] MEDS: AMIODARONE HCL 200 MG TABLET PO SCH (10:10)
[2019-08-24] MEDS: DOCUSATE SODIUM 100 MG CAPSULE PO SCH ×2 (10:10→21:15)
[2019-08-24] MEDS: PANTOPRAZOLE SODIUM 40 MG TABLET PO SCH (10:10)
[2019-08-24] MEDS: EZETIMIBE 10 MG TABLET PO SCH (10:10)
[2019-08-24] MEDS: NIFEDIPINE 30 MG TAB.ER.24 PO SCH (10:11)
[2019-08-24] MEDS: MULTIVITAMINS/MINERALS TABLET PO SCH (10:11)
[2019-08-24] MEDS: APIXABAN 5MG TABLET PO SCH ×2 (10:11→21:15)
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
--- NOTE | 2019-08-24 11:58 | Physical Therapy Tx Note ---
Physical Therapy Tx Note - Treatment Note Tolerated: Good Total Time Spent With Patient: 30 Physical Therapy Tx Note: Detail (Patient reported that he was having pain in his L shoulder. During treatment today, the patient seemed more confused and had trouble following directions at times. He ambulated 120 feet with the front- wheeled walker with supervision. Patient has more stability with ambulation using the walker. He completed the following exercises in standing: hip abduction x10, hip flexion x15, hip extension x10, narrow BHAVANI balance x30'', eyes closed balance x30'', balance on foam x30'', marching on foam x10, side stepping 2x5 feet. Patient needed breaks after every couple of exercises due to being tired. In sitting he completed: hip adduction with a ball x15, knee flexion with red Theraband x15, hip abduction with red Theraband x15, and LAQ x10. Exercises were done bilaterally. He ambulated 75 feet with his 4-pt cane at the end of the session. He needed frequent verbal cuing to keep all 4-pts on the ground. Patient would maintain this for a couple of steps before starting to carry his cane again or only putting a few points of the cane down at a time. He was more unsteady when using the cane today. The patient was left in his recliner with his call light and bedside table within reach, and the chair alarm set.) Physical Therapy Problem List: Detail (1. Gait abnormalities 2. Decreased LE strength 3. Assistance for transfers 4. Decreased standing balance) Physical Therapy Goals: 1. Patient will be independent and demonstrate good technique of exercises in his HEP to maintain and improve limited LE strength motions. 2. Patient will be able to ambulate 150 feet independently with his 4- pt cane to get around his home independently. 3. Patient will be able to complete all transfers independently to return home without assistance. 4. Patient's balance will be assessed using an objective balance assessment. Physical Therapy Plan: Patient will be seen 1-2x a day, M-F, for gait training, therapeutic exercises and activities, HEP instruction, and balance training.
--- NOTE | 2019-08-24 15:11 | Occupational Therapy Tx Note ---
Occupational Therapy Tx Note - Treatment Note Tolerated: Fair Total Time Spent With Patient: 35 Occupational Therapy Treatment Note: Detail (Patient supine in bed with spouse (Marilu) present in the room. Confused why therapist was there but with several prompting methods with spouse and therapise, patient willing to go to rehab gym. Supervision bed mobility supine <> short sit at edge of bed. CGA for safety with sit<>stand t/f to w/c for dependent w/c mobility to rehab gym. Patient completed pulleys for BUE AROM due to bilateral shld stiffness and decreased ROM. Patient had difficulty with attempting to lift LUE due to pain and c/o "cracking." Patient completed resistive clothespins table top level from w/c. He was able to complete yellow, red, green, blue, and black on the RUE and only yellow and red clothespins from the LUE. Patient unable to finish clothespins on the right due to pain in shld. Patient completed gross grasp strengthening with hand helper 20x each hand (2 green and 1 red rubber band). Patient fatigued but in good spirits throughout treatment. T/f w/c > bedside chair with CGA for safety. However, while standing patient showed impulsivity while reach suddenly to bedside table to grab bag of donuts and eating while standing when he was reyes ppose to be completing t/f to chair. Patient completed t/f with max verbal cues and prompting. Chair alarm armed and spouse in room with patient upon leaving.) Occupational Therapy Problem List: Detail (1. Decreased cognition/orientation. 2. Decreased shoulder AROM and strength needed for Ind ADLs. 3. Decreased Ind with dressing and showering.) Occupational Therapy Goals: 1. Pt will be oriented x 3. 2. Pt will be Ind with total body dressing. 3. Pt will be Ind with showering in sitting. 4. Pt will demonstrate improved shoulder motion and strength to allow Ind with ADLs. Prognosis: Moderate Occupational Therapy Plan: OT 2-4 times per week to address goals and problem list as above.
[2019-08-24] MEDS: GABAPENTIN 300 MG CAPSULE PO SCH (16:19)
[2019-08-24] MEDS: ATORVASTATIN 20 MG TABLET PO SCH (21:14)
[2019-08-24] MEDS: CALCIUM CARBONATE 500 MG TAB.CHEW PO SCH (21:15)
[2019-08-24] MEDS: REMOVE PATCH 1 EACH MISC TD SCH (21:19)
[2019-08-25] MEDS: HYDROCODONE/APAP 5/325MG TABLET PO PRN ×2 (08:09→23:02)
[2019-08-25] MEDS: APIXABAN 5MG TABLET PO SCH ×2 (10:15→21:49)
[2019-08-25] MEDS: DOCUSATE SODIUM 100 MG CAPSULE PO SCH ×2 (10:15→21:48)
[2019-08-25] MEDS: LIDOCAINE 5% PATCH TOP SCH (10:16)
[2019-08-25] MEDS: AMIODARONE HCL 200 MG TABLET PO SCH (10:16)
[2019-08-25] MEDS: MULTIVITAMINS/MINERALS TABLET PO SCH (10:17)
[2019-08-25] MEDS: NIFEDIPINE 30 MG TAB.ER.24 PO SCH (10:18)
[2019-08-25] MEDS: EZETIMIBE 10 MG TABLET PO SCH (10:18)
[2019-08-25] MEDS: PANTOPRAZOLE SODIUM 40 MG TABLET PO SCH (10:19)
--- NOTE | 2019-08-25 10:30 | Physical Therapy Tx Note ---
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 Patient states ribs are sore today. Patient transferred sit to and from stand mod assist x2. Patient ambulated 100 feet with quad cane CGA x1. Patient required verbal cueing with ambulation to take smaller steps and to stand up straight. Patient performed the following seated exercises x10 reps each: marching, LAQ, hamstring curls with red theraband, hip abduction with red theraband, and isometric hip adductor squeezes. Patient required verbal cueing to perform exercises correctly. Patient reports ribs are sore after treatment. Patient was left seated in chair with nursing students in room.) Physical Therapy Problem List: Detail (1. Gait abnormalities 2. Decreased LE strength 3. Assistance for transfers 4. Decreased standing balance) Physical Therapy Goals: 1. Patient will be independent and demonstrate good technique of exercises in his HEP to maintain and improve limited LE strength motions. 2. Patient will be able to ambulate 150 feet independently with his 4- pt cane to get around his home independently. 3. Patient will be able to complete all transfers independently to return home without assistance. 4. Patient's balance will be assessed using an objective balance assessment. Prognosis: Good Physical Therapy Plan: Patient will be seen 1-2x a day, M-F, for gait training, therapeutic exercises and activities, HEP instruction, and balance training.
--- NOTE | 2019-08-25 14:01 | Physical Therapy Tx Note ---
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 Patient states his ribs are feeling better this afternoon. Patient transferred sit to and from stand CGA x1. Patient ambulated 238 feet with wheeled walker CGA x1. Patient required verbal cueing to keep walker close to body. Patient transferred sit to and from stand CGA x1. Patient performed the following standing exercises x10 reps each: heel raises, toe raises, marching, hip abduction, hip extension, hamstring curls, and sit to and from stand. Patient performed the following balance exercises x15 seconds each: feet together, feet together with looking up and down, feet together with looking side to side, DLS with eyes closed, and stride stance. Patient required several seated rest breaks with standing exercises and balance. Patient displays decreased strength and endurance with standing exercises and balance. Patient reports feeling tired after treatment, and that bilateral shoulders are sore. Patient was left seated in chair with call light within reach and chair alarm on.) Physical Therapy Problem List: Detail (1. Gait abnormalities 2. Decreased LE strength 3. Assistance for transfers 4. Decreased standing balance) Physical Therapy Goals: 1. Patient will be independent and demonstrate good technique of exercises in his HEP to maintain and improve limited LE strength motions. 2. Patient will be able to ambulate 150 feet independently with his 4- pt cane to get around his home independently. 3. Patient will be able to complete all transfers independently to return home without assistance. 4. Patient's balance will be assessed using an objective balance assessment. Prognosis: Good Physical Therapy Plan: Patient will be seen 1-2x a day, M-F, for gait training, therapeutic exercises and activities, HEP instruction, and balance training.
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
[2019-08-25] MEDS: GABAPENTIN 300 MG CAPSULE PO SCH (18:23)
[2019-08-25] MEDS: CALCIUM CARBONATE 500 MG TAB.CHEW PO SCH (21:47)
[2019-08-25] MEDS: ATORVASTATIN 20 MG TABLET PO SCH (21:48)
[2019-08-25] MEDS: REMOVE PATCH 1 EACH MISC TD SCH (23:02)
[2019-08-26] MEDS: PANTOPRAZOLE SODIUM 40 MG TABLET PO SCH (11:06)
[2019-08-26] MEDS: APIXABAN 5MG TABLET PO SCH (11:06)
[2019-08-26] MEDS: MULTIVITAMINS/MINERALS TABLET PO SCH (11:07)
[2019-08-26] MEDS: EZETIMIBE 10 MG TABLET PO SCH (11:07)
[2019-08-26] MEDS: AMIODARONE HCL 200 MG TABLET PO SCH (11:08)
[2019-08-26] MEDS: NIFEDIPINE 30 MG TAB.ER.24 PO SCH (11:09)
[2019-08-26] MEDS: DOCUSATE SODIUM 100 MG CAPSULE PO SCH (11:09)
[2019-08-26] MEDS: LIDOCAINE 5% PATCH TOP SCH (11:13)
[2019-08-26] MEDS: ACETAMINOPHEN 325 MG TAB PO PRN (11:27)
--- NOTE | 2019-08-26 11:45 | Rehab Discharge Summary ---
Patient Information - Patient Information Diagnosis: Deconditioning due to R rib fracture Ordered Treatment: OT Evaluate and Treat Surgery: No History: Detail (Patient was admitted to a swing bed on 08/19/19.) Past Medical/Surgical Hx: PAST MEDICAL/SURGICAL HISTORY Past Surgical History T&A; right knee scope x2; left knee scope; EGD; hemorrhoidectomy; hernia left inguinal; rt rotator cuff repair; prostatectomy; colonoscopy; left knee replacement 05-14-15. bilat cataract sx; PMH - Respiratory Hx Respiratory Disorders Yes Hx Bronchitis Yes Hx Pneumonia Yes PMH - Cardiovascular Hx Cardiovascular Disorders No Hx Irregular Heartbeat Yes: afib Hx Transient Ischemic Attacks Yes: 2005 (TIA) Residual Deficits from CVA No PMH - Neuro Hx Neurological Disorders Yes Hx Cerebrovascular Accident Yes Hx Dizziness Yes: sometimes Hx Transient Ischemic Attacks Yes: 2005 (TIA) PMH - GI Hx Gastrointestinal Disorders Yes Hx Gastroesophageal Reflux Yes PMH - Hx Genitourinary Disorders Yes Hx Prostate Problems Yes: cancer- PMH - Endocrine Hx Endocrine Disorders No PMH - Musculoskeletal Hx Musculoskeletal Disorders Yes Hx Arthritis Yes: left knee replaced Hx Osteoporosis Yes PMH - Psych Hx Psychiatric Problems Yes Hx Anxiety Yes: "I worry sometimes" PMH - Hematology/Oncology Hx Hematology/Oncology Yes Disorders Hx Cancer Yes: prostate removed Hx Chemotherapy No Hx Radiation Therapy No Premorbid Status: Detail (Patient reports that prior to the hospitalization he ambulated with a 4-pt cane with no difficulties. Pt reports that he was Ind with bathing and dressing although he later reported that his helped him with his shower. He reported that he and his shared home mgmt, meal prep, laundry and yard work although he reported to PT that they have someone who comes to clean their house and that they have help with the yardwork.) Social History: Detail (Patient lives in a 1-story home with his . He states that there is one step to enter. In the bathroom there is a tub/shower combination with a shower seat but no grab bars or hand held shower. The toilet is standard height and there are grab bars by it. He has a 4-pt cane available to him.) Precautions: [place], Fall, Other ([place]) - Time With Patient Total Time Spent With Patient (Min): 25 Treatment Procedures: Detail (Patient was left in his bedside chair with his call light and bedside table within reach, and the chair alarm set. His and grandchild were in the room with him.) Subjective Information - Subjective Information Per Patient (Patient reported pain in the L shoulder.) Objective Data - Pain Pain Present: Yes (L shoulder) - ROM Within normal limits (LE AROM is within normal limits for functional activities.) - Strength/Tone Within normal limits (R hip flexion 4/5, L hip flexion 5/5, Bilateral hip abduction 4/5, bilateral hip abduction 5/5, bilateral knee flexion and extension, and ankle dorsiflexion 5/5) - Coordination Appears within normal limits for therapeutic activities - Bed Mobility Independent (Patient was independent in bed mobility tasks.) - Transfers Independent (Patient is independent in sit to stand and stand to sit transfers.) - Balance Balance Sitting: Good Balance Standing: Fair (Patient's balance was reassessed and found to be unchanged from the time of the original assessment using the [place] Balance scale. His score is 37/56 putting him in the moderate fall risk category.) - Sensation Intact - Gait Detail (Patient was able to ambulate up to 200 feet. He ambulated using both the quad cane and the front-wheeled walker. When using the quad cane he required consistent verbal cuing to keep the quad cane on the ground, and to make sure all 4-pts made contact with the ground for stability. The patient seemed unsteady when using the quad cane and had poor judgement with its use at times. When using the front-wheeled walker the patient required verbal cuing to stay inside of the walker. When using the walker he has more stability but has poor choices in judgement at times as well. Patient required at minimum supervision with ambulation, but often contact guard of 1 for safety especially when using the quad cane.) Therapy Assessment - Therapy Assessment Detail (Patient was able to meet 2.5/4 of his inpatient therapy goals. Patient was able to maintain strength and ambulate longer distances. However, he is at risk for falls due to poor judgement with ambulation and not correctly using his ADs. It was recommended to him and his family that he uses a walker for ambulation to try to decrease his risk for falls and not the quad-cane due to his inproper use of it. It is being recommended that he continue with home therapy following discharge to improve his gait safety and use of an AD, and to improve upon his balance.) Problem List - Problem List Physical Therapy Problem List: Detail (1. Gait abnormalities 2. Decreased LE strength 3. Assistance for transfers 4. Decreased standing balance) Occupational Therapy Problem List: Detail (1. Decreased cognition/orientation. 2. Decreased shoulder AROM and strength needed for Ind ADLs. 3. Decreased Ind with dressing and showering.) Goals - Goals Physical Therapy Goals: 1. Patient will be independent and demonstrate good technique of exercises in his HEP to maintain and improve limited LE strength motions. Goal not met. 2. Patient will be able to ambulate 150 feet independently with his 4-pt cane to get around his home independently. Goal partially met. 3. Patient will be able to complete all transfers independently to return home without assistance. Goal met. 4. Patient's balance will be assessed using an objective balance assessment. Goal met Occupational Therapy Goals: 1. Pt will be oriented x 3. 2. Pt will be Ind wit h total body dressing. 3. Pt will be Ind with showering in sitting. 4. Pt will demonstrate improved shoulder motion and strength to allow Ind with ADLs. Plan - Plan Physical Therapy Plan: Patient has been discharged from inpatient physical therapy at this time. He is being referred for home therapy. Occupational Therapy Plan: OT 2-4 times per week to address goals and problem list as above.
--- NOTE | 2019-08-26 12:38 | Rehab Discharge Summary ---
Patient Information - Patient Information Diagnosis: Deconditioning due to R rib fracture Ordered Treatment: OT Evaluate and Treat Surgery: No History: Detail (Patient was admitted to a swing bed on 08/19/19.) Past Medical/Surgical Hx: PAST MEDICAL/SURGICAL HISTORY Past Surgical History T&A; right knee scope x2; left knee scope; EGD; hemorrhoidectomy; hernia left inguinal; rt rotator cuff repair; prostatectomy; colonoscopy; left knee replacement 05-14-15. bilat cataract sx; PMH - Respiratory Hx Respiratory Disorders Yes Hx Bronchitis Yes Hx Pneumonia Yes PMH - Cardiovascular Hx Cardiovascular Disorders No Hx Irregular Heartbeat Yes: afib Hx Transient Ischemic Attacks Yes: 2005 (TIA) Residual Deficits from CVA No PMH - Neuro Hx Neurological Disorders Yes Hx Cerebrovascular Accident Yes Hx Dizziness Yes: sometimes Hx Transient Ischemic Attacks Yes: 2005 (TIA) PMH - GI Hx Gastrointestinal Disorders Yes Hx Gastroesophageal Reflux Yes PMH - Hx Genitourinary Disorders Yes Hx Prostate Problems Yes: cancer- PMH - Endocrine Hx Endocrine Disorders No PMH - Musculoskeletal Hx Musculoskeletal Disorders Yes Hx Arthritis Yes: left knee replaced Hx Osteoporosis Yes PMH - Psych Hx Psychiatric Problems Yes Hx Anxiety Yes: "I worry sometimes" PMH - Hematology/Oncology Hx Hematology/Oncology Yes Disorders Hx Cancer Yes: prostate removed Hx Chemotherapy No Hx Radiation Therapy No Premorbid Status: Detail (Patient reports that prior to the hospitalization he ambulated with a 4-pt cane with no difficulties. Pt reports that he was Ind with bathing and dressing although he later reported that his helped him with his shower. He reported that he and his shared home mgmt, meal prep, laundry and yard work although he reported to PT that they have someone who comes to clean their house and that they have help with the yardwork.) Social History: Detail (Patient lives in a 1-story home with his . He states that there is one step to enter. In the bathroom there is a tub/shower combination with a shower seat but no grab bars or hand held shower. The toilet is standard height and there are grab bars by it. He has a 4-pt cane available to him.) Precautions: [place], Fall, Other ([place]) - Time With Patient Total Time Spent With Patient (Min): 30 Treatment Procedures: Detail (re-eval, ther ex including red theraputty with written HEP provided, standing and reaching into low cupboard to simulate home kitchen task and gentle PROM to left shoulder.) Subjective Information - Subjective Information Per Patient Objective Data - Pain Pain Present: Yes (Pt reports left shoulder pain with crepitus noted during PROM) - Mental Status Patient Orientation: Oriented x3 (Pt oriented x 3 today. 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 He requires cues at times to use walker appropriately.) - ADL's/IADL's Detail (Pt able to complete showering and total body dressing with supervision when standing.) Therapy Assessment - Therapy Assessment Detail (Pt is Ind with self care tasks although it is recommended that he has supervision when standing.) Problem List - Problem List Physical Therapy Problem List: Detail (1. Gait abnormalities 2. Decreased LE strength 3. Assistance for transfers 4. Decreased standing balance) Occupational Therapy Problem List: Detail (1. Decreased cognition/orientation. 2. Decreased shoulder AROM and strength needed for Ind ADLs. 3. Decreased Ind with dressing and showering.) Goals - Goals Physical Therapy Goals: 1. Patient will be independent and demonstrate good technique of exercises in his HEP to maintain and improve limited LE strength motions. Goal not met. 2. Patient will be able to ambulate 150 feet independently with his 4-pt cane to get around his home independently. Goal partially met. 3. Patient will be able to complete all transfers independently to return home without assistance. Goal met. 4. Patient's balance will be a ssessed using an objective balance assessment. Goal met Occupational Therapy Goals: Goals met: 1. Pt will be oriented x 3. 2. Pt will be Ind with total body dressing. Goal partially met: 3. Pt will be Ind with showering in sitting. Goal not met: 4. Pt will demonstrate improved shoulder motion and strength to allow Ind with ADLs. Prognosis - Prognosis Moderate Plan - Plan Physical Therapy Plan: Patient has been discharged from inpatient physical therapy at this time. He is being referred for home therapy. Occupational Therapy Plan: Pt discharged home with home OT recommended.
== END 2019-08-26 14:41 | disposition home health service (06) | DRG 560 ==
LOC: MEDSURG 15:22
PROVIDERS: ADMIT Emergency Medicine; ATTEND Internal Medicine
DX: S22.32XD Fracture of one rib, left side, subsequent encounter for fracture with routine healing (principal); E87.1 Hypo-osmolality and hyponatremia; I48.91 Unspecified atrial fibrillation; Z79.01 Long term (current) use of anticoagulants; Z66 Do not resuscitate; Z87.891 Personal history of nicotine dependence; Z85.46 Personal history of malignant neoplasm of prostate; Z90.79 Acquired absence of other genital organ(s)
CPT/HCPCS: 80048; 81003; 85025; 90732; 97110; 99306; 99309; 99316